=== PATIENT | male | born 1935 | race Caucasian/White ===

== ENCOUNTER → 2018-09-10 | Outpatient (CLI) | payer OTHER ==
[~2018-09-10] MED LIST: ATIVAN0.5 MG PO; CIPRO500 MG PO; CIPROFLOXACIN500 MG PO; COLACE100 MG PO; DITROPAN5 MG PO; L-ARGININE500 M3 PO; LECITHIN1200 M1 PO; LIPITOR40 MG PO; PERCOCET 325 MG1 TA2 PO; PRINZIDE 12.5 M1 TA1 PO
--- NOTE | ~2018-09-10 | SLPPN ---
[place], [place] ASSISTANT MANAGER QUALITY MANAGEMENT PROGRESS NOTE NAME: CURTIS AVILA UNIT #: [id number] ROOM: DOCTOR: SHA MANZANO Patient Name: CURTIS AVILA Date: 09/10/2018 Patient Date of : 1935 [facility] Start of Care: 09/10/2018 Reason for Treatment: RAD/SH Visits since start of care: 1 Primary Care Physician: SHA MANZANO Referring Physician: SHA MANZANO Speech-Language Pathology Treatment Note Reason for Visit RAD/SH Arrival Information Subjective Initial evaluation completed to generate electronic medical record. Refer to [employer] for full evaluation. Medical History Past Medical History [facility] Visit Start Time 2:00 PM Visit End Time 3:00 PM Visit Duration 60 minutes Procedures CPT [place] Code Intervention Modifier Minutes Units 1726463 MOTION FLUOROSCOPY/SWALLOW 60 1 78685 Total Timed Minutes 0 Total Treatment Minutes 60 Therapist Signature(s) Signed By: Anna Fletcher [facility] License #: [id number] 09/10/2018, 3:05 PM CM:MAE 1509 1509 [facility]
--- NOTE | ~2018-09-10 | SHMRC ---
[place], [place] [facility] NAME: CURTIS AVILA UNIT #: [id number] ROOM: DOCTOR: SHA MANZANO Patient Name: CURTIS AVILA Date: 09/10/2018 Patient Number: [id number] Treating Therapist:Anna Fletcher Patient Date of : 1935 Location: [facility] Patient Reason for Visit RAD/SH Electronic Signature(s) Signed By: Date: Anna Fletcher 09/10/2018 15:05:42 Entered By: Anna Fletcher on 09/10/2018 15:02:59 Arrival Information Patient Name: CURTIS AVILA Date: 09/10/2018 Patient Number: [id number] Treating Therapist:Anna Fletcher Patient Date of : 1935 Location: [facility] Patient Subjective Initial evaluation completed to generate electronic medical record. Refer to [facility] for full evaluation. Electronic Signature(s) Signed By: Date: Anna Fletcher 09/10/2018 15:05:42 Entered By: Anna Fletcher on 09/10/2018 15:02:59 Medical History Patient Name: CURTIS AVILA Date: 09/10/2018 Patient Number: [id number] Treating Therapist:Anna Fletcher Patient Date of : 1935 Location: [facility] Patient Past Medical History Electronic Signature(s) Signed By: Date: Anna Fletcher 09/10/2018 15:05:42 Entered By: Anna Fletcher on 09/10/2018 15:02:59 Allergy List Patient Name: CURTIS AVILAKendall Date: 09/10/2018 Patient Number: [id number] Treating Therapist:Anna Fletcher Patient Date of : 1935 Location: [facility] Patient Electronic Signature(s) Signed By: Date: Anna Fletcher 09/10/2018 15:05:42 Entered By: Anna Fletcher on 09/10/2018 15:02:59 Arrival Information Patient Name: CURTIS AVILA Date: 09/10/2018 Patient Number: [id number] Treating Therapist:Anna Fletcher Patient Date of : 1935 Location: [facility] Patient Subjective Initial evaluation completed to generate electronic medical record. Refer to [facility] for full evaluation. Electronic Signature(s) [facility] NAME: CURTIS AVILA UNIT #: [id number] ROOM: DOCTOR: SHA MANZANO Signed By: Date: Anna Fletcher 09/10/2018 15:05:42 Entered By: Anna Fletcher on 09/10/2018 15:02:59 SuperBill Patient Name: CURTIS AVILA Date: 09/10/2018 Patient Number: [id number] Treating Therapist:Anna Fletcher Patient Date of : 1935 Location: [facility] Patient Visit Start Time 2:00 PM Visit End Time 3:00 PM Visit Duration 60 minutes Procedures CPT [place] Code Intervention Modifier Minutes Units 36006 [id number] MOTION FLUOROSCOPY/SWALLOW 60 1 Total Timed Minutes 0 Total Treatment Minutes 60 Electronic Signature(s) Signed By: Date: Anna Fletcher 09/10/2018 15:05:42 Entered By: Anna Fletcher on 09/10/2018 15:04:01 Chief Complaint Patient Name: AVILA CURTIS R. Date: 09/10/2018 Patient Number: [id number] Treating Therapist:Anna Fletcher Patient Date of : 1935 Location: [facility] Patient Reason for Visit RAD/SH Electronic Signature(s) Signed By: Date: Anna Fletcher 09/10/2018 15:05:42 Entered By: Anna Fletcher on 09/10/2018 15:02:59 Medical History Patient Name: CURTIS AVILAKendall Date: 09/10/2018 Patient Number: [id number] Treating Therapist:Anna Fletcher Patient Date of : 1935 Location: [facility] Patient Past Medical History Electronic Signature(s) Signed By: Date: Anna Fletcher 09/10/2018 15:05:42 Entered By: Anna Fletcher on 09/10/2018 15:02:59 Allergy List Patient Name: CURTIS AVILA Date: 09/10/2018 Patient Number: [id number] Treating Therapist:Anna Fletcher Patient Date of : 1935 [facility] Patient Electronic Signature(s) Signed By: Date: [place], [place] [facility] NAME: CURTIS AVILA UNIT #: [id number] ROOM: DOCTOR: SHA MANZANO Maryann 09/10/2018 15:05:42 Entered By: Anna Fletcher on 09/10/2018 15:02:59 CM:EFRAIN 1509 1509 [facility]
--- NOTE | ~2018-09-10 | PROC NOTE ---
[place], [place] PROCEDURE NOTE NAME: SANG TOM UNIT #: [id number] ROOM: DOCTOR: ABENA GRIMALDO BIRTHDATE: [birth year] DOS: 09/10/2018 MODIFIED BARIUM SWALLOW ORDERING PHYSICIAN: Dr. Jade Oreilly. RADIOLOGIST: Dr. Garrison. BACKGROUND INFORMATION: Sang Tom is an 83-year-old male who was seen for modified barium swallow. This test was ordered to rule out aspiration. The patient reported choking episodes when drinking fast and stated that this has been occurring for the past couple of years. Medical history is significant for HTN and tremors. For today's assessment, the patient was alert and able to follow all commands. Respiratory status was within normal limits. Oral peripheral examination revealed presence of partial plate. Some missing teeth were observed. Lingual skills were within normal limits in terms of strength, range of motion, and coordination. Labial and buccal skills were mildly reduced in range of motion and strength. METHODS AND MATERIALS USED FOR THE EXAMINATION: The patient was positioned in the lateral plane and the exam was viewed under fluoroscopy. The patient was presented with barium coated sandwich taken in bite size piece and thin liquid barium taken by cup in single sip size amounts and consecutive sips. ORAL PHASE: Unremarkable. PHARYNGEAL PHASE: Unremarkable. ESOPHAGEAL PHASE: This phase of the swallow was not formally assessed during this exam. IMPRESSIONS AND RECOMMENDATIONS: Based upon assessment results, this 83-year-old patient presents with oral and pharyngeal swallowing skills that are within normal limits with all consistencies taken. The patient reported a history of occasional choking when drinking fast. He was observed during the study to safely tolerate thin liquids in single sip and consecutive sip size amounts. No penetration or aspiration occurred with any consistency. Recommend the patient will remain on a regular diet and thin liquids. Recommend use of safe swallow precautions such as slow consumption and small bites and sips. Results and recommendations were shared with the patient and family member that accompanied him. They verbalized understanding. No followup therapy is warranted at this time. Thank you very much for this referral. Should you have any questions regarding this patient, please contact the speech pathologist at [phone]. [place], [place] PROCEDURE NOTE NAME: SANG TOM UNIT #: [id number] ROOM: DOCTOR: ABENA GRIMALDO BIRTHDATE: [birth year] ABENA GRIMALDO CM:PROCNOTE:PROCEDURE NOTE 1549 [id number] ABENA GRIMALDO
== END | disposition home or self-care (01) ==
LOC: RAD/SH 13:33
DX: I65.23 Occlusion and stenosis of bilateral carotid arteries (principal); I10 Essential (primary) hypertension; F17.200 Nicotine dependence, unspecified, uncomplicated

== ENCOUNTER 2020-08-30 17:08 | Inpatient (IN) | payer MEDICARE ==
[~2020-08-30] VITALS: Ht 172.7 cm; Wt 70.8 kg
[2020-08-30 17:36] VITALS: BP 104/68
[2020-08-30 18:25] LABS: BASO # 0.1 10*3/uL (0.0-0.1); BASO % 0.6 % (0.0-1.0); EOS # 0.1 10*3/uL (0.0-0.4); EOS % 0.7 % (1.0-4.0); HEMATOCRIT 39.6 % (42.0-52.0); LYMPH # 1.8 10*3/uL (1.3-4.4); LYMPH % 21.2 % (27.0-41.0); MEAN CELL VOLUME 88.8 fl (80.0-94.0); MEAN CORPUSCULAR HGB 28.7 pg (27.0-31.0); MEAN CORPUSCULAR HGB CONC 32.3 g/dl (33.0-37.0); MEAN PLATELET VOLUME 12.2 fl (9.6-12.3); MONO # 0.7 10*3/uL (0.1-1.0); MONO % 8.1 % (3.0-9.0); NEUT # 5.9 10*3/uL (2.3-7.9); NEUT % 69.2 % (47.0-73.0); PLATELET COUNT AUTOMATED 137 10*3/uL (130-400); RED BLOOD COUNT 4.46 10*6/uL (4.50-5.90); RED CELL DISTRI WIDTH 13.4 % (0-14.5); WHITE BLOOD COUNT 8.5 10*3/uL (4.8-10.8)
[2020-08-30 18:44] LABS: ALBUMIN 3.3 gm/dl (3.1-4.5); CREATININE 1.64 mg/dL (0.70-1.30); POTASSIUM 3.6 mmol/L (3.5-5.1); TOTAL PROTEIN 6.4 gm/dL (6.4-8.2)
[2020-08-30 18:45] LABS: TROPONIN I 0.025 ng/ml (<0.045)
[2020-08-30 22:52] VITALS: BP 160/90; BP 168/94; BP 168/98
[2020-08-30 23:24] VITALS: BP 210/98
[2020-08-30] MEDS ORDERED: ATORVASTATIN CA40 M1 PO (23:35)
[2020-08-30] MEDS ORDERED: LISINOPRIL40 MG PO (23:37)
[2020-08-30] MEDS ORDERED: AMLODIPINE BESY10 MG PO (23:38)
[2020-08-30] MEDS ORDERED: NAPROXEN500 MG PO (23:39)
[2020-08-30] MEDS ORDERED: TERBINAFINE250 MG PO (23:40)
[2020-08-30] MEDS ORDERED: MAGNESIUM100 M1 PO (23:41)
[2020-08-30] MEDS ORDERED: VITAMIN D325 MCG PO (23:42)
[2020-08-30 23:45] VITALS: BP 212/100
[2020-08-31] VITALS (8 sets, daily range): BP systolic 160–198; BP diastolic 68–116
[2020-08-31 04:45] LABS: BILIRUBIN Negative (Negative); BLOOD Negative (Negative); CLARITY Clear (Clear); COLOR Yellow (Yellow); GLUCOSE Negative (Negative); KETONE Trace (Negative); LEUKO ESTERASE Negative (Negative); NITRITE Negative (Negative); UROBILINOGEN 0.2 E.U./dl (0.0-1.0)
[2020-08-31 06:47] LABS: BASO % 0.5 % (0.0-1.0); EOS # 0.1 10*3/uL (0.0-0.4); EOS % 1.8 % (1.0-4.0); HEMATOCRIT 38.9 % (42.0-52.0); LYMPH # 2.3 10*3/uL (1.3-4.4); MEAN CELL VOLUME 89.4 fl (80.0-94.0); MEAN CORPUSCULAR HGB 28.7 pg (27.0-31.0); MEAN CORPUSCULAR HGB CONC 32.1 g/dl (33.0-37.0); MONO # 0.6 10*3/uL (0.1-1.0); MONO % 8.1 % (3.0-9.0); NEUT # 4.5 10*3/uL (2.3-7.9); NEUT % 59.3 % (47.0-73.0); PLATELET COUNT AUTOMATED 113 10*3/uL (130-400); RED BLOOD COUNT 4.35 10*6/uL (4.50-5.90); RED CELL DISTRI WIDTH 13.3 % (0-14.5); WHITE BLOOD COUNT 7.6 10*3/uL (4.8-10.8)
[2020-08-31 07:06] LABS: ALBUMIN 3.1 gm/dl (3.1-4.5); ALKALINE PHOSPHATASE 63 U/L (45-117); BUN 28 mg/dl (7-24); CHLORIDE 110 mmol/L (98-107); FREE T4 1.26 ng/dl (0.76-1.46); POTASSIUM 3.4 mmol/L (3.5-5.1); SGOT/AST 18 IU/L (3-35); SGPT/ALT 21 U/L (12-78); SODIUM 142 mmol/L (136-145); TOTAL PROTEIN 6.1 gm/dL (6.4-8.2)
[2020-08-31 07:12] LABS: THYROID STIM HORMONE (HS) 0.672 uIU/ml (0.358-4.75)
[2020-09-01] VITALS: BP 168/82
[2020-09-01] MEDS ORDERED: TAMSULOSIN HCL0.4 MG PO (04:26)
[2020-09-01] MEDS ORDERED: MELOXICAM7.5 MG PO (04:26)
[2020-09-01] MEDS ORDERED: MAGNESIUM500 MG PO (04:27)
[2020-09-01 06:36] LABS: BASO # 0.1 10*3/uL (0.0-0.1); BASO % 0.7 % (0.0-1.0); EOS # 0.3 10*3/uL (0.0-0.4); EOS % 3.5 % (1.0-4.0); HEMATOCRIT 39.1 % (42.0-52.0); LYMPH # 1.9 10*3/uL (1.3-4.4); LYMPH % 25.5 % (27.0-41.0); MEAN CELL VOLUME 89.5 fl (80.0-94.0); MEAN CORPUSCULAR HGB 28.6 pg (27.0-31.0); MONO # 0.7 10*3/uL (0.1-1.0); MONO % 8.8 % (3.0-9.0); NEUT # 4.6 10*3/uL (2.3-7.9); NEUT % 61.2 % (47.0-73.0); PLATELET COUNT AUTOMATED 115 10*3/uL (130-400); RED BLOOD COUNT 4.37 10*6/uL (4.50-5.90); RED CELL DISTRI WIDTH 13.3 % (0-14.5); WHITE BLOOD COUNT 7.5 10*3/uL (4.8-10.8)
[2020-09-01 07:05] LABS: BUN 22 mg/dl (7-24); CHLORIDE 110 mmol/L (98-107); CREATININE 0.94 mg/dL (0.70-1.30); POTASSIUM 3.4 mmol/L (3.5-5.1); SODIUM 142 mmol/L (136-145)
[2020-09-01 08:00] VITALS: BP 166/100
== END 2020-09-01 15:35 | disposition home or self-care (01) | DRG 314 ==
LOC: ED 17:08 → EDHOLD 21:12 → 5E 21:12
PROVIDERS: Internal Medicine; Physician Assistant; ADMIT Internal Medicine; ATTEND Internal Medicine
DX: I95.9 Hypotension, unspecified (principal); N17.0 Acute kidney failure with tubular necrosis; I48.0 Paroxysmal atrial fibrillation; M48.02 Spinal stenosis, cervical region; M19.071 Primary osteoarthritis, right ankle and foot; D64.9 Anemia, unspecified; G25.0 Essential tremor; E78.5 Hyperlipidemia, unspecified; I10 Essential (primary) hypertension; M19.072 Primary osteoarthritis, left ankle and foot; R73.9 Hyperglycemia, unspecified; E87.8 Other disorders of electrolyte and fluid balance, not elsewhere classified; E55.9 Vitamin D deficiency, unspecified; E86.0 Dehydration; Z79.899 Other long term (current) drug therapy